=== PATIENT | female | born 2000 | race African-American/Black ===

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

== ENCOUNTER 2021-07-10 05:18 | Observation (INO) | payer BC ==
[~2021-07-10] VITALS: Ht 160 cm; Wt 70.0 kg
[2021-07-10] VITALS (8 sets, daily range): BP systolic 103–125; BP diastolic 58–82; PULSE 60–74; TEMP 97.5–98.7
[~2021-07-10 05:18] MED LIST changes: +MOTRIN 200200 MG/TAB PO
[2021-07-10 05:38] LABS: BASO % 0.3 % (0.0-2.0); EOS # 0.1 (0.0-0.7); EOS % 0.3 % (0-4.0); GRAN # 10.1 (1.4-6.5); GRAN % 69.1 % (42.2-75.2); HEMOGLOBIN 12.8 g/dl (12.0-15.0); LYMPH # 3.6 (1.2-3.4); LYMPH % 24.9 % (20.0-51.0); MEAN CELL VOLUME 88 fl (80.0-95.0); MEAN CORPUSCULAR HEMOGLOBIN 30 pg (26.0-32.0); MEAN CORPUSCULAR HGB CONC 35 g/dl (33.0-37.0); MONO # 0.8 (0.1-0.6); MONO % 5.1 % (1.7-9.3); PLATELET COUNT 364 K/mm3 (130-400); RED BLOOD COUNT 4.21 M/mm3 (4.10-5.30); REDCELL DISTRIBUTION WIDTH-CV 14.1 % (11.5-14.5)
[2021-07-10 05:39] LABS: HEMATOCRIT 36.9 % (35.0-45.0)
[2021-07-10 05:55] LABS: ALBUMIN 4.4 gm/dL (3.5-5.0); BILIRUBIN,TOTAL 0.4 mg/dL (0.0-1.0); C-REACTIVE PROTEIN 0.7 mg/dL (0.0-0.9); CALCIUM 9.1 mg/dL (8.4-10.2); CREATININE, serum 0.63 (0.52-1.25); POTASSIUM 3.5 mmol/L (3.4-5.0); TOTAL PROTEIN 7.6 gm/dL (6.4-8.2)
[2021-07-10] MEDS ORDERED: ZOFRAN ODT4 MG PO (06:33)
--- NOTE | 2021-07-10 12:30 | NUR ---
Oriented patient to room. She stated she has slight pain to lower abdomen. Explained the plan of care for today. She is nervous about having surgery. INT to left AC. Oriented patient to room. She has a friend at bedside. She deines nausea at this time. No other changes at this time. Call light within reach.
--- NOTE | 2021-07-10 17:30 | NUR ---
Patient is going to surgery. Consent signed and on the chart. Dr Milian seen patient before she went down. No other changes at this time. All jewelry removed except her nose ring because she stated she did not know how to take it out. Her family are aware she is having surgery.
--- NOTE | 2021-07-10 20:30 | NUR ---
Pt. arrived to the floor from the PACU at 1850. Pt. was A&O at arrival and vitals stable. At this time, Pt. is A&OX3, assessment complete INT patent. Pt. denies pain or other needs, call light within reach.
[2021-07-11 04:35] VITALS: BP 115/69; PULSE 78; TEMP 98.4
[2021-07-11 08:00] VITALS: BP 112/61; PULSE 56; TEMP 97.9
--- NOTE | 2021-07-11 10:08 | NUR ---
cloth worker met with patient to discuss discharge plan. Patient is a student here at [employer] and states she has contacted [facility]. Requests that i contact the [facility]. Patient lives in an apartment off campus and uses [facility] for medical needs. Patient uses [facility] for perscriptions and reports no trouble affording medications. *Discharge plan: Home*
--- NOTE | 2021-07-11 10:20 | NUR ---
[employer]ra[employer] worker made report to student life per [facility] patients wishes.
--- NOTE | 2021-07-11 11:00 | NUR ---
Patient has been doing well this morning. She is independent in the room. Denies nausea and pain. She has been walking in the room but did not want to walk in the hallways. She is passing flatus, no bowel movement yet today. She stated she is having cramping but not from surgery, she started her period. No other changes at this time. Call light within reach.
[2021-07-11 11:09] VITALS: BP 105/79; PULSE 50; TEMP 98.4
[2021-07-11] MEDS ORDERED: NORCO 325 MG-51 TAB PO (13:48)
--- NOTE | 2021-07-11 14:38 | NUR ---
First visit from the retail sales advisor. No needs right now.
--- NOTE | 2021-07-11 14:45 | NUR ---
Patient is discharging home. Discharge instructions discussed with patient. NO questions verbalized. INT discontinued. All belongings packed up by patient and sent with her. Copies of discharge instructions sent with patient. Explained when follow up appointment is. Explained she has prescriptions at the pharmacy to warehouse order picker. Patient walked out via wheel chair.
== END 2021-07-11 14:45 | disposition home or self-care (01) ==
LOC: COL.ER 05:18 → EDBEDREQTM 09:00 → SURG 09:30
PROVIDERS: Emergency Medicine; ADMIT Surgery
DX: K35.80 Unspecified acute appendicitis (principal)
CPT/HCPCS: C9113; G0378; J1100; J1885; J2270; J2405; J2543; J2550; J2704; J2710; J7030; J7120; Q9967